=== PATIENT | female | born 1970 | race Caucasian/White ===

== ENCOUNTER 2025-01-02 20:34 | Emergency (ER) | payer OTHER ==
[~2025-01-02] VITALS: Ht 152.4 cm; Wt 70.9 kg
[2025-01-02 20:48] VITALS: BP 138/80; PULSE 90; RESP 20; TEMP 98.1; O2SAT 99
[2025-01-02 21:00] LABS: GLUCOMETER DEV NAME(LOC) ERT.7; GLUCOSE,POINT OF CARE 417 MG/DL (70-110)
[2025-01-02 21:22] LABS: PLATELET COUNT (AUTO) 296 K/uL (150-450); RED BLOOD CELL COUNT(AUTO) 4.98 MIL/uL (4.00-5.20); RED CELL DISTRIBUTION WIDTH 15.4 % (11.5-14.5); WHITE BLOOD COUNT (AUTO) 6.2 K/uL (4.5-11.0)
[2025-01-02 21:27] LABS: CALCIUM, TOTAL 8.8 mg/dL (8.8-10.5); CREATININE 1.02 mg/dL (0.60-1.30); GLOMERULAR FILTR. RATE CALC 57.0 mL/min (>60); GLUCOSE,RANDOM 384.0 mg/dL (70-110); SODIUM SERUM 137.0 mmol/L (136-145); UREA NITROGEN, BLOOD 11.0 mg/dL (7-18)
[2025-01-02] MEDS: INSULIN REGULAR, HUMAN 100 UNITS/ML SQ ONE (22:54)
== END 2025-01-02 23:05 | disposition home or self-care (01) ==
LOC: EMS 20:34
DX: E11.65 Type 2 diabetes mellitus with hyperglycemia (principal); M19.90 Unspecified osteoarthritis, unspecified site; I10 Essential (primary) hypertension; Z91.013 Allergy to seafood
CPT/HCPCS: 99284; 71045; 80048; 82962; 84703; 85025; 36415; 96372; J1815